=== PATIENT | female | born 2000 | race Two or more races ===

== ENCOUNTER 2024-07-06 15:28 | Inpatient (IN) | payer MEDICAID ==
[~2024-07-06] VITALS: Ht 160 cm; Wt 72.1 kg
[2024-07-06 17:05] LABS: GLUCOMETER DEV NAME(LOC) POC.BV; POC SARS-COV2 AG, FIA NEGATIVE (NEGATIVE)
[2024-07-06] MEDS ORDERED: HALOPERIDOL 5 MG TABLET PO PRN (23:30)
[2024-07-06 23:47] VITALS: BP 111/64; PULSE 78; RESP 18; TEMP 97.8; O2SAT 100
[2024-07-06] MEDS: ZOLPIDEM TARTRATE 10 MG TABLET PO PRN (23:57)
[2024-07-07 07:52] LABS: HEMOGLOBIN A1C 4.8 % (3.8-5.6)
[2024-07-07 08:01] LABS: CHOL/HDL RATIO 4.1 (3.9-5.7); CHOLESTEROL 147 mg/dL (131-200); FREE T4 (FREE THYROXINE) 0.97 ng/dL (0.76-1.46); HCG,QUANTITATIVE < 1 mIU/mL (0-6); HDL CHOLESTEROL 36 mg/dL (40-60); LDL CHOL (CALC.) 100 mg/dL (0-130); T4 (THYROXINE) 7.5 mcg/dL (4.7-13.3); THYROID STIMULATING HORMONE 1.34 uIU/mL (0.36-3.74); TRIGLYCERIDES 57 mg/dL (15-150)
[2024-07-07 08:27] VITALS: BP 102/65; PULSE 89; RESP 18; TEMP 97.5; O2SAT 100
[2024-07-07] MEDS: LORazepam 1 MG TABLET PO PRN (11:32)
[2024-07-07] MEDS ORDERED: NICOTINE 14 MG/24 HOUR PATCH TD PRN (19:00)
[2024-07-07] MEDS ORDERED: LOPERAMIDE HCL 2 MG CAPSULE PO PRN (19:00)
[2024-07-07] MEDS ORDERED: PETROLATUM,WHITE 28 GM JELLY TP PRN (19:00)
[2024-07-07] MEDS ORDERED: DOCUSATE SODIUM 100 MG CAPSULE PO PRN (19:00)
[2024-07-07] MEDS ORDERED: GuaiFENesin/D-METHORPHAN [SUGAR-FREE] 200-20MG/10 ML SYRUP UDCUP PO PRN (19:00)
[2024-07-07] MEDS ORDERED: ALBUTEROL SULFATE HFA 90 MCG/PUFF 8 GM INHALER IH PRN (19:00)
[2024-07-07] MEDS ORDERED: ONDANSETRON 4 MG TABLET PO PRN (19:00)
[2024-07-07] MEDS ORDERED: CloNIDine HCL 0.1 MG TABLET PO PRN (19:00)
[2024-07-07] MEDS ORDERED: MAGNESIUM HYDROXIDE SUSPENSION 30 ML UDCUP PO PRN (19:00)
[2024-07-07] MEDS ORDERED: IBUPROFEN 400 MG TABLET PO PRN (19:00)
[2024-07-07] MEDS ORDERED: MAG HYDROX/ALUMINUM HYD/SIMETH ES 30 ML SUSPENSION UDCUP PO PRN (19:00)
[2024-07-07] MEDS ORDERED: ACETAMINOPHEN 325 MG TABLET PO PRN (19:00)
[2024-07-07 20:23] VITALS: BP 102/72; PULSE 88; RESP 18; TEMP 98; O2SAT 98
[2024-07-08 08:33] LABS: HEMOGLOBIN A1C 4.7 % (3.8-5.6)
[2024-07-08 08:39] LABS: CHOL/HDL RATIO 4.7 (3.9-5.7)
[2024-07-08 08:47] VITALS: BP 100/60; PULSE 68; RESP 16; TEMP 98.2; O2SAT 98
[2024-07-08 09:05] LABS: THYROID STIMULATING HORMONE 1.21 uIU/mL (0.36-3.74)
[2024-07-08] MEDS: SERTRALINE HCL 50 MG TABLET PO SCH (09:13)
[2024-07-08] MEDS ORDERED: SERT-158 PO (12:32)
== END 2024-07-08 12:15 | disposition home or self-care (01) | DRG 751 ==
LOC: B2S 23:24
PROVIDERS: ADMIT Psychiatry & Neurology Child & Adolescent Psychiatry; ATTEND Psychiatry & Neurology Child & Adolescent Psychiatry
PROC: GZ56ZZZ Individual Psychotherapy, Supportive (ICD-10-PCS; principal; 2024-07-07)
DX: F33.2 Major depressive disorder, recurrent severe without psychotic features (principal); I10 Essential (primary) hypertension; Z20.822 Contact with and (suspected) exposure to COVID-19
CPT/HCPCS: 80061; 83036; 84436; 84439; 84443; 84702; 86592

== ENCOUNTER → 2024-07-06 | Emergency (ER) | payer MEDICAID ==
[~2024-07-06] VITALS: Ht 160 cm; Wt 72.0 kg
[~2024-07-06] MED LIST: SERT-158 PO
[2024-07-06 19:34] LABS: BASOPHILS % (AUTO) 0.4 % (0.0-2.0); EOSINOPHILS % (AUTO) 1.8 % (1.0-6.0); HEMATOCRIT 40.9 % (36-46); HEMOGLOBIN 13.6 g/dL (12.0-16.0); LYMPHOCYTES # (AUTO) 2.6 K/uL (1.0-4.8); LYMPHOCYTES % (AUTO) 35.7 % (22.0-44.0); MEAN CORPUSCULAR HEMOGLOBIN 31.1 pg (26.0-34.0); MEAN CORPUSCULAR HGB CONC 33.2 G/dL (31.0-37.0); MEAN CORPUSCULAR VOLUME 94 fL (80-100); MONOCYTES # (AUTO) 0.4 K/uL (0.1-1.0); MONOCYTES % (AUTO) 6.1 % (2.0-9.0); NEUTROPHILS # (AUTO) 4.1 K/uL (1.8-7.7); PLATELET COUNT (AUTO) 330 K/uL (150-450); RED BLOOD CELL COUNT(AUTO) 4.37 MIL/uL (4.00-5.20); RED CELL DISTRIBUTION WIDTH 12.9 % (11.5-14.5); WHITE BLOOD COUNT (AUTO) 7.3 K/uL (4.5-11.0)
[2024-07-06 19:45] LABS: ANION GAP 7 mmol/L (8-16); CALCIUM, TOTAL 8.4 mg/dL (8.8-10.5); CARBON DIOXIDE 29 mmol/L (22-29); CHLORIDE 103 mmol/L (98-107); GLOMERULAR FILTR. RATE CALC > 60 mL/min (>60); GLUCOSE,RANDOM 90 mg/dL (70-110); POTASSIUM 3.9 mmol/L (3.5-5.1); SODIUM SERUM 139 mmol/L (136-145); UREA NITROGEN, BLOOD 7 mg/dL (7-18)
[2024-07-06 19:50] LABS: ALANINE AMINOTRANSFERASE 14 U/L (12-78); ALBUMIN 3.6 g/dL (3.4-5.0); ALKALINE PHOSPHATASE 76 U/L (46-116); ASPARTATE AMINOTRANSFERASE 13 U/L (15-37); BILIRUBIN,TOTAL 0.5 mg/dL (0.1-1.0); TOTAL PROTEIN, SERUM 7.5 g/dL (6.4-8.2)
[2024-07-06] MEDS: SODIUM CHLORIDE 0.9% 1,000 ML IV ONE (21:07)
[2024-07-06 22:40] VITALS: BP 99/64; PULSE 75; RESP 18; TEMP 98; O2SAT 98
== END | disposition home or self-care (01) ==
LOC: EMS 18:13 → EDUNIT# 18:13
DX: E86.0 Dehydration (principal); I95.9 Hypotension, unspecified; R45.851 Suicidal ideations; F42.9 Obsessive-compulsive disorder, unspecified
CPT/HCPCS: 99284; 96360; 80053; 85025; 36415; 93005; J7030